=== PATIENT | male | born 1985 | race Caucasian/White ===

== ENCOUNTER 2024-09-21 10:54 | Emergency (ER) | payer MEDICARE, OTHER, SELFPAY ==
[2024-09-21 10:56] VITALS: BP 132/90
[2024-09-21 11:40] VITALS: BMI 22.5
--- NOTE | 2024-09-21 11:58 | ED.GENMED ---
History of Present Illness
General
Chief Complaint: Skin Problem
Source: patient
Exam Limitations: none
Time Seen by Provider: 09/21/24 11:44
Nursing documentation reviewed up to this point in time: agreed with
History of Present Illness
History of Present Illness:
38-year-old male presents emergency department due to a rash and shortness of breath that occurred last while patient was in [place] on vacation. He has had some shortness of breath and felt shaky when it started. He was seen by a
physician in [place] who prescribed a prednisone taper and montelukast and clobetasol. He did not take them yet.
Past History
Past History
ED Past Medical History: Arrthythmia and Other (migraines)
ED Past Surgical History: Cardiac (Cardiac ablation)
Social History
Tobacco: Non-smoker
Alcohol: Occasional
Drug: None
Personal:
Living: with family
Review of Systems
Review of Systems
Allergies reviewed?: Yes
All Other Systems: Not applicable
Constitutional: Reports no symptoms
EENT: Reports no symptoms
Respiratory: Reports trouble breathing
Cardiac: Reports no symptoms
ABD/GI: Reports no symptoms
: Reports no symptoms
Musculoskeletal: Reports no symptoms
Skin: Reports itching and rash
Neurological: Reports no symptoms
Endocrine: Reports no symptoms
Hematologic/Lymphatic: Reports no symptoms
Psychiatric: Reports no symptoms
Phy Exam
Physical Exam
Physical Exam:
Physical Exam
General: no apparent distress, not acutely ill
Neck: supple. no meningeal signs. normal posterior pharynx
Heart: s1/s2 regular rate and rhythm, no murmur. equal radial
pulses.
HEENT: Pupils equal round reactive to light, EOMI
Lungs: no acute respiratory distress. clear bilaterally
Abdomen: normal bowel sounds. not tender. no CVAT
Neuro: alert and oriented. no focal neurological deficits cranial nerves II through XII intact
Skin: Papular rash bilateral upper arms
Psychiatric: well kept. interactive and cooperative
Extremities: no edema. no calf tenderness. negative homans. good distal pulses
Course
Orders/Labs/Results
Orders:
Orders
09/21/24 11:55
CR Chest - 2 Views Urgent
Comment:
Reason For Exam: short of breath
Vital Signs
Initial and Last Documented VS:
Initial Vital Signs
Temp Pulse Resp BP Pulse Ox
98.7 F 81 15 132/90 99
09/21/24 10:56 09/21/24 10:56 09/21/24 10:56 09/21/24 10:56 09/21/24 10:56
Last Documented Vital Signs
Temp Pulse Resp BP Pulse Ox
98.7 F 81 15 132/90 99
09/21/24 10:56 09/21/24 10:56 09/21/24 10:56 09/21/24 10:56 09/21/24 12:00
MDM/Problems Addressed
Differential Diagnosis Includes:
Pneumonia, allergic reaction
MDM/Problems Addressed:
38-year-old male with dermatitis. Do not suspect pneumonia or PE or anaphylaxis. Patient will take prescribed prednisone and clobetasol. Return precautions given.
*Radiology
Radiology exam reviewed: preliminary read by ED provider (Chest x-ray no acute findings)
*Pulse Oximetry
SaO2: 99
Oxygen Mode of Delivery: Room air
Patient hypoxic: no
*Circular Sawyer Helper Interpretation
Rate: Circular Sawyer Helper- N/A
*Critical Care Note
Total Time (30-74mins, 75-104mins- exclusive of procedures): Not Applicable
Data Reviewed
Further Testing Considered But Not Given:
CT chest not indicated
Patient Management
Social determinants of health affecting care: Living situation and Strong social support
Escalation/DeEscalation of care consider admission/obs:
Admit not indicated
ED Attending Note
-
Portions of this chart may have been created with voice recognition software.� Occasional wrong word or��sound alike� substitutions may have occurred due to the inherent limitations of voice recognition software.
Discharge Plan
Departure
Patient Disposition: Home (Routine Discharge)
Date of Disposition: 09/21/24
Time of Disposition: 13:05
Patient with high blood pressure during this ER visit?: Yes
Condition: Good
Discharge Problem:
Dermatitis
Instructions: Skin Rash (DC), BLOOD PRESSURE
Prescriptions:
No Action
verapamil 40 MG tablet
40 mg PO BIDPRN PRN (Reason: as directed)
metoprolol succinate 25 MG tablet extended release 24 hr
25 mg PO DAILY
prednisone 20 mg tablet
40 mg PO DAILY Qty: 8 0RF
doxycycline hyclate 100 mg capsule
100 mg PO BID 7 Days Qty: 14 0RF
Referrals:
Pool Perry MD [Family Provider, Family Practice] - Call in 1-3 days for appt
Activity Restrictions/Additional Instructions:
Take prescribed clebetasol. Use prednisone if rash does not improve.
Interventions
Interventions:
*Risk Screen - Suicide Last Done: 09/21/24 10:56
*General Assessment Last Done: 09/21/24 10:56
*Neglect/Abuse Screening Last Done: 09/21/24 10:56
*ED- Fall Risk Assessment Last Done: 09/21/24 11:40
*ED COVID-19 Vaccine History Last Done: 09/21/24 10:56
ED-Skin Assessment Last Done: 09/21/24 11:40
Discharge Date and Time
Print Language: NEPALI
== END 2024-09-21 13:14 | disposition home or self-care (01) ==
LOC: EMR 10:54
PROVIDERS: EMERGENCY PHYSICIAN Emergency Medicine; FAMILY PHYSICIAN Family Medicine
DX: L30.9 Dermatitis, unspecified (principal); R06.02 Shortness of breath
CPT/HCPCS: 99283; 71046

== ENCOUNTER 2024-09-27 23:23 | Emergency (ER) | payer MEDICARE, OTHER, SELFPAY ==
[2024-09-27 23:30] VITALS: BP 142/82
[2024-09-28 02:00] VITALS: BP 127/70
--- NOTE | 2024-09-28 02:37 | ED.GENMED ---
History of Present Illness
General
Chief Complaint: Extremity Pain (non-traumatic)
Source: patient
Exam Limitations: none
Time Seen by Provider: 09/28/24 02:37
Nursing documentation reviewed up to this point in time: agreed with
History of Present Illness
History of Present Illness:
Note:
CHIEF COMPLAINT(S)
Burning and painful sensation in the right arm following a difficult intravenous placement.
HISTORY OF PRESENT ILLNESS
The patient is a 38-year-old male hx of SVT, PTSD who presented with complaints of burning and painful sensation in the right arm. He reported that these symptoms began after an intravenous (IV) line placement during a recent trip to [place] which
he feels was improperly done. This was done on september 20. He noted bruising at the site, which has progressively become more painful and now includes a 'fire burning sensation' that travels up the arm. There was no associated redness or significant
swelling noted; however, the patient described a specific tender spot on the arm. He denied any numbness, tingling, or recent trauma to the arm. The patient has a history of supraventricular tachycardia (SVT) and self-administered verapamil as
needed when experiencing episodes. He mentioned experiencing a minor SVT episode today, with symptoms of shakiness and weakness, prompting a call to emergency services by a family member. He denies current chest pain or dyspnea, although these
symptoms were present earlier but have since resolved.
MEDICATIONS
The patient takes verapamil on an as-needed basis for supraventricular tachycardia.
PHYSICAL EXAM
- Nursing notes reviewed and vital signs reviewed.
General: Patient is well appearing and in no acute distress; non-toxic
Skin: Warm and dry, small area of erythema noted to the posterior aspect of the left forearm
Head: Normocephalic, atraumatic
Eyes: Sclera non-icteric. EOMs intact.
Cardiac: Regular rate and rhythm, no murmurs
Peripheral Vascular: No lower extremity swelling or edema, no upper extremity swelling, 2+ radial, ulnar, and brachialis pulse on the left
Pulm: Normal respiratory effort
Musculoskeletal: No tenderness to palpation of the left upper extremity
Neuro: CN II-XII intact, no focal neurologic deficits.
Psychiatric: Appropriate mood and affect.
PLAN
1. Perform an ultrasound of the right arm to rule out deep venous thrombosis.
2. Administer non-steroidal anti-inflammatory drugs for pain management.
3. Consider administration of antibiotics based on ultrasound results and clinical judgment.
4. Repeat electrocardiogram to assess current cardiac status.
DIFFERENTIAL DIAGNOSIS
The Differential Diagnosis includes, in no particular order and is not limited to:
1. Superficial thrombophlebitis
2. Deep vein thrombosis
3. Cellulitis
4. Phlebitis secondary to IV placement
5. Local soft tissue injury
6. Hematoma
7. Complex regional pain syndrome
8. Infection secondary to compromised IV placement
9. Lymphedema
10. Allergic reaction to material used during IV placement
MDM/DISPOSITION
The patient is a 38-year-old male hx of SVT, PTSD who presented with complaints of burning and painful sensation in the right arm. He reported that these symptoms began after an intravenous (IV) line placement during a recent trip to [place] which
he feels was improperly done. He denies any swelling, numbness or tingling. On exam he has a small patch of erythema but no tenderness to palpation. US negative for DVT. Suspect superficial phlebitis, discussed conservative treatment, will initiate
doxycycline to cover for developing cellulitis. Patient stable for discharge.
Past History
Past History
ED Past Medical History: Arrthythmia and Other (migraines)
ED Past Surgical History: Cardiac (Cardiac ablation)
Social History
Tobacco: Non-smoker
Alcohol: Occasional
Drug: None
Personal:
Living: with family
Phy Exam
Physical Exam
Physical Exam:
see hpi
Course
Orders/Labs/Results
Orders:
Orders
09/28/24 02:52
Ibuprofen [Motrin] 600 mg PO NOW STA
US Periph Venous UPPER Ext LT Urgent
Comment:
Reason For Exam: left upper exremity pain, redness
09/28/24 02:53
Electrocardiogram (*1) Urgent
Reason for Study: Palpitations
Vital Signs
Initial and Last Documented VS:
Initial Vital Signs
Temp Pulse Resp BP Pulse Ox
97.8 F 86 20 142/82 98
09/27/24 23:30 09/27/24 23:30 09/27/24 23:30 09/27/24 23:30 09/27/24 23:30
Last Documented Vital Signs
Temp Pulse Resp BP Pulse Ox
97.9 F 62 20 124/80 98
09/28/24 05:15 09/28/24 05:15 09/28/24 05:15 09/28/24 05:15 09/28/24 05:43
*Pulse Oximetry
SaO2: 98
Patient hypoxic: no
*Critical Care Note
Total Time (30-74mins, 75-104mins- exclusive of procedures): Not Applicable
ED Attending Note
-
Portions of this chart may have been created with voice recognition software.� Occasional wrong word or��sound alike� substitutions may have occurred due to the inherent limitations of voice recognition software.
Discharge Plan
Departure
Patient Disposition: Home (Routine Discharge)
Date of Disposition: 09/28/24
Time of Disposition: 05:18
Patient with high blood pressure during this ER visit?: Yes
Condition: Good
Discharge Problem:
Redness of forearm
Instructions: Muscle and Bone Pain (DC), Superficial vein phlebitis and thrombosis
Prescriptions:
New
doxycycline hyclate 100 mg capsule
100 mg PO BID 5 Days Qty: 14 0RF
No Action
verapamil 40 MG tablet
40 mg PO BIDPRN PRN (Reason: as directed)
cyclobenzaprine 10 mg Tablet
10 mg PO Q6H PRN (Reason: back spasm)
prednisone 5 mg Tablet
5 mg PO DAILY
Rx Instructions:
tapering
lorazepam
1 mg PO DAILY PRN (Reason: anxiety)
Referrals:
Pool Perry MD [Family Provider, [facility]]
Activity Restrictions/Additional Instructions:
You can use a heating pad on the area and take NSAIDs as needed.
To cover for developing cellulitis, you can start taking doxycycline. You can take 1 tablet 2 times daily for 5 days.
Please follow-up with your primary care provider.
PLEASE RETURN EMERGENCY DEPARTMENT SHOULD YOU DEVELOP CHEST PAIN, SHORTNESS OF BREATH ACUTE WORSENING OR PAIN, INCREASING REDNESS, SWELLING, FEVERS OR CHILLS, OR ANY OTHER SIGNS OR SYMPTOMS WORRISOME TO YOU.
Interventions
Interventions:
*Risk Screen - Suicide Last Done: 09/27/24 23:30
*General Assessment Last Done: 09/28/24 01:36
*Neglect/Abuse Screening Last Done: 09/27/24 23:30
*ED- Fall Risk Assessment Last Done: 09/28/24 01:36
*ED COVID-19 Vaccine History Last Done: 09/28/24 01:36
*Nursing Disposition Last Done: 09/28/24 05:52
ED-Skin Assessment Last Done: 09/28/24 01:36
ED-Peripheral Vascular Assessment Last Done: 09/28/24 01:36
ED-Musculoskeletal Assessment Last Done: 09/28/24 01:36
Discharge Date and Time
Discharge Date/Time: 09/28/24 05:15
Print Language: [place]AST [place]
[2024-09-28 03:00] VITALS: BP 112/69
[2024-09-28] MEDS: MOTRIN 600 MG PO (03:16)
[2024-09-28 05:15] VITALS: BP 124/80
== END 2024-09-28 05:15 | disposition home or self-care (01) ==
LOC: EMR 23:23
PROVIDERS: EMERGENCY PHYSICIAN Student in an Organized Health Care Education/Training Program; FAMILY PHYSICIAN Family Medicine
DX: M79.601 Pain in right arm (principal); Z86.79 Personal history of other diseases of the circulatory system
CPT/HCPCS: 99284; 93005; 93971

== ENCOUNTER 2024-10-20 09:33 | Emergency (ER) | payer MEDICARE, OTHER, SELFPAY ==
[2024-10-20 09:35] VITALS: BP 131/87
--- NOTE | 2024-10-20 11:04 | ED.GENMED ---
History of Present Illness
General
Chief Complaint: Allergic Reaction
Source: patient
Exam Limitations: none
Time Seen by Provider: 10/20/24 10:57
Nursing documentation reviewed up to this point in time: agreed with
History of Present Illness
History of Present Illness:
Note:
CHIEF COMPLAINT(S)
Swelling of throat, difficulty swallowing, and diffuse urticaria.
HISTORY OF PRESENT ILLNESS
The patient is a 38-year-old male who presents with concerns of throat swelling and hives. Approximately two weeks ago, the patient was stung by bees, leading to five stings on his ankles, which subsequently developed into cellulitis. The patient
was prescribed doxycycline, which he completed yesterday. He reports that after completing the doxycycline, the redness began to return, particularly on his chest and back, and he started experiencing difficulty swallowing this morning. The patient
has a history of allergic reactions to bee stings, which previously resulted in throat swelling and difficulty breathing, necessitating treatment. This morning, he noted the spread of urticaria and the onset of throat swelling. He has used an
epinephrine auto-injector in the past after bee stings. The patient questions whether he may have developed a new allergy to doxycycline, despite having taken it previously without issues.
PHYSICAL EXAM
- General: No signs of respiratory distress.
- Ear, Nose, and Throat: Patient reports throat swelling; no oropharyngeal edema observed.
- Neck: No jugular venous distention.
- Lungs: Clear to auscultation bilaterally.
- Cardiovascular: Normal S1 and S2; no S3 or S4.
- Abdomen: Unremarkable.
- Extremities: No edema.
- Skin: Diffuse urticaria observed on the back and lower legs.
- Neurological: Cranial nerves 2-12 intact; no neurological deficits.
PLAN
Administer an intramuscular injection of 0.3 mg epinephrine and observe the response. Discuss whether a repeat course of antibiotics is necessary after evaluating response to treatment. Continue monitoring for any progression of symptoms.
DIFFERENTIAL DIAGNOSIS
The differential diagnosis includes, in no particular order and is not limited to:
1. Allergic reaction to bee stings
2. Acute urticaria
3. Anaphylaxis
4. Cellulitis
5. Drug reaction (possible allergy to doxycycline)
6. Angioedema
7. Sun sensitivity reaction
8. Reactive airway disease second to allergic response
9. Contact dermatitis
10. Environmental allergy reaction
CARE-UPDATE
10/20/24 - 13:06
Patient reports improvement following administration of epinephrine. No signs of infection or clear etiology for allergic reaction identified. Discharging patient with a short course of prednisone. Patient is equipped with an epinephrine pen for
emergencies. Ready for discharge.
Disposition:
SUMMARY OF ENCOUNTER
The 38-year-old male patient presented to the emergency department with throat swelling, difficulty swallowing, and diffuse urticaria. The patient reported a history of allergic reactions to bee stings and was recently on doxycycline for cellulitis,
which he completed yesterday. Symptoms of throat swelling and urticaria developed this morning. In the emergency department, the patient received intramuscular epinephrine, which resulted in symptom improvement. Due to the patients previous
reactions and potential for anaphylaxis, a cautious approach with observation and medication adjustment was necessary.
DISPOSITION
The patient was discharged with a short course of prednisone and equipped with an epinephrine pen for emergencies.
ASSESSMENT
The patient is most likely experiencing anaphylaxis due to a potential new allergy to doxycycline or a severe allergic reaction secondary to previous sensitization from bee stings.
EMERGENCY TREATMENTS ADMINISTERED
Administered intramuscular injection of 0.3 mg epinephrine.
PLAN
The plan includes monitoring symptom progression following the administration of epinephrine, observing for any reoccurrence or intensification of symptoms, and continuing with a short course of prednisone to further manage allergic response.
PATIENT EDUCATION AND COUNSELING
Discussed the importance of avoiding known allergens and situations that may trigger allergic reactions. Reviewed the use of an epinephrine auto-injector and when to seek immediate emergency help. Provided information on the potential signs and
symptoms of recurrent anaphylaxis.
FOLLOW-UP INSTRUCTIONS
The patient was advised to follow up with a primary care provider to reassess and manage the situation further, ensuring ongoing health monitoring and care as necessary.
MEDICATION RECONCILIATION
1. Prescribed a short course of prednisone.
2. Provided an epinephrine auto-injector for emergency use.
MEDICAL DECISION MAKING
-Complexity of Data Reviewed: Chronic conditions affecting care include a history of allergic reactions to bee stings and recent doxycycline use for cellulitis. Differential diagnosis includes allergic reaction to bee stings, acute urticaria,
anaphylaxis, cellulitis, a drug reaction to doxycycline, angioedema, contact dermatitis, and environmental allergy reaction.
-Data:
Category 1
No specific tests or documents were reviewed or ordered during this encounter.
-Risk:
Consideration of Admission/Observation: Escalation of care, including admission/observation, was considered given the complexity and risk of the patients presenting complaint, exam findings, and their underlying comorbidities. However, ultimately, I
feel the patient is safe for outpatient management with close follow-up. Reasoning: Work-up reassuring, does not reveal any acute life/organ-threatening processes, patients symptoms well controlled upon reevaluation, reexamination is reassuring,
vitals are stable, patient agreeable with discharge, and reliable for follow-up.
DIAGNOSIS
Anaphylaxis (ICD-10: T78.2XXA).
Past History
Past History
ED Past Medical History: Arrthythmia and Other (migraines)
ED Past Surgical History: Cardiac (Cardiac ablation)
Social History
Tobacco: Non-smoker
Alcohol: Occasional
Drug: None
Personal:
Living: with family
Phy Exam
Physical Exam
Physical Exam:
.
Course
Orders/Labs/Results
Orders:
Orders
10/20/24 11:00
EPINEPHrine PF [Adrenalin] 1 mg .ROUTE .STK-MED ONE
10/20/24 11:03
EPINEPHrine PF [Adrenalin] 0.3 mg IM NOW STA
10/20/24 12:00
Propofol [Diprivan] 20 ml .ROUTE .STK-MED
Vital Signs
Initial and Last Documented VS:
Initial Vital Signs
Temp Pulse Resp BP Pulse Ox
98 F 96 16 131/87 100
10/20/24 09:35 10/20/24 09:35 10/20/24 09:35 10/20/24 09:35 10/20/24 09:35
Last Documented Vital Signs
Temp Pulse Resp BP Pulse Ox
98 F 85 18 116/69 99
10/20/24 09:35 10/20/24 12:00 10/20/24 12:00 10/20/24 12:03 10/20/24 12:03
*Pulse Oximetry
SaO2: 100
Oxygen Mode of Delivery: Room air
Patient hypoxic: no
*Critical Care Note
Total Time (30-74mins, 75-104mins- exclusive of procedures): 32
comment:
Critical care statement: A total of 32 minutes of critical care time was provided for this patient. This includes management of unstable vital signs, evaluation of the patient at bedside, reviewing the patient's pertinent medical records, discussion
with consultants, review of old EKGs and review of pertinent medical records. This time with separate from time utilized to perform the aforementioned documented procedures
ED Attending Note
-
Portions of this chart may have been created with voice recognition software.� Occasional wrong word or��sound alike� substitutions may have occurred due to the inherent limitations of voice recognition software.
Discharge Plan
Departure
Patient Disposition: Home (Routine Discharge)
Date of Disposition: 10/20/24
Time of Disposition: 13:06
Patient with high blood pressure during this ER visit?: No
Condition: Good
Discharge Problem:
Anaphylaxis
Instructions: Anaphylaxis - Discharge instructions
Prescriptions:
New
prednisone 50 mg tablet
50 mg PO DAILY Qty: 5 0RF
No Action
verapamil 40 MG tablet
40 mg PO BIDPRN PRN (Reason: as directed)
cyclobenzaprine 10 mg Tablet
10 mg PO Q6H PRN (Reason: back spasm)
prednisone 5 mg Tablet
5 mg PO DAILY
Rx Instructions:
tapering
lorazepam
1 mg PO DAILY PRN (Reason: anxiety)
doxycycline hyclate 100 mg capsule
100 mg PO BID 5 Days Qty: 14 0RF
Referrals:
Pool Perry MD [Family Provider, Family Practice] - Call in 1-3 days for appt
Interventions
Interventions:
*Risk Screen - Suicide Last Done: 10/20/24 09:36
*General Assessment Last Done: 10/20/24 11:09
*Neglect/Abuse Screening Last Done: 10/20/24 09:36
*ED- Fall Risk Assessment Last Done: 10/20/24 10:54
*ED COVID-19 Vaccine History Last Done: 10/20/24 11:09
ED- Cardiac Assessment Last Done: 10/20/24 10:54
ED- Pulmonary Assessment Last Done: 10/20/24 10:54
ED-Skin Assessment Last Done: 10/20/24 10:53
Discharge Date and Time
Print Language: JORDAN[place]
[2024-10-20] MEDS: ADRENALIN 0.3 MG IM (11:07)
[2024-10-20 12:03] VITALS: BP 116/69
[2024-10-20 13:21] VITALS: BP 119/78
== END 2024-10-20 13:21 | disposition home or self-care (01) ==
LOC: EMR 09:33
PROVIDERS: EMERGENCY PHYSICIAN Emergency Medicine; FAMILY PHYSICIAN Family Medicine
DX: T78.2XXA Anaphylactic shock, unspecified, initial encounter (principal); X58.XXXA Exposure to other specified factors, initial encounter; R13.10 Dysphagia, unspecified; L50.9 Urticaria, unspecified
CPT/HCPCS: 96372; 99291

== ENCOUNTER 2025-02-04 07:28 | Emergency (ER) | payer MEDICARE, OTHER, SELFPAY ==
[2025-02-04 07:30] VITALS: BP 128/74; BMI 22.1
--- NOTE | 2025-02-04 07:55 | ED.GENMED ---
History of Present Illness
General
Chief Complaint: Numbness
Source: patient
Exam Limitations: none
Time Seen by Provider: 02/04/25 07:41
Nursing documentation reviewed up to this point in time: agreed with
History of Present Illness
History of Present Illness:
39-year-old male with past medical history of SVT who presents to the emergency department for evaluation of headache/right facial paresthesias and issues with balance in the setting of recent URI symptoms. Patient reports that yesterday he started
feeling sick 'like I was coming down with a cold.' He describes feeling congested, achy with subjective fever/chills throughout the day. He says he took some Mucinex and was able to get through the day. In the evening he says that he started to
have some mild pruritus and some hives and took some Claritin which helped with this. He says that he started to feels some swelling on the right side of his face. Says he woke up this morning and the swelling was improved but he still feels
paresthesias in the right side of his face. He says he has significant right sided headache. He says that this morning he feels like his balance is off 'like I am drifting towards the left.' Came to the ER for evaluation. He denies any ear pain.
He denies any cough, chest pain, shortness of breath. He denies any other neurologic symptoms�denies any numbness in the extremities or weakness in the extremities, denies any change in his vision or speech. He denies having had similar symptoms
in the past.
Past History
Past History
ED Past Medical History: Arrthythmia and Other (migraines)
ED Past Surgical History: Cardiac (Cardiac ablation)
Social History
Tobacco: Non-smoker
Alcohol: Occasional
Drug: None
Personal:
Living: with family
Review of Systems
Review of Systems
All Other Systems: ROS reviewed and negative except as documented in HPI and ROS
Constitutional: Reports fever, fatigue and chills
EENT: Reports other (Congestion); Denies sore throat
Respiratory: Denies trouble breathing
Cardiac: Denies chest pain
ABD/GI: Denies abdominal pain, nausea or vomiting
: Denies flank pain
Musculoskeletal: Reports neck pain; Denies back pain
Neurological: Reports dizzy and headache; Denies weakness or numbness
Phy Exam
Physical Exam
Physical Exam:
General: Awake, alert, oriented x3; no acute distress
Head: Normocephalic, atraumatic
Eyes: Conjunctiva normal, EOMI, pupils equal round reactive to light bilaterally
Ears: External ear appears normal bilaterally, ear canals clear bilaterally; TMs are normal bilaterally with good light reflex, no erythema or bulging
Throat: Airway intact, handling secretions, slight erythema in the posterior oropharynx but no tonsillar edema or exudate
Neck: Trachea midline, supple without meningismus
Lungs: Clear to auscultation bilaterally, no wheezing, rales, rhonchi
Heart: Regular rate and rhythm, no murmurs, gallops, or rubs
Neuro: Cranial nerve intact, speech fluid without dysarthria or aphasia, no limb ataxia, motor and sensory is intact and symmetric in the upper and lower extremities
Skin: no rash noted
Extremities: No edema in extremities, equal pulses in all extremities
Scores
NIH Stroke Score
Level of Consciousness: 0 - Alert
LOC Questions: 0-Answers both correctly
LOC Commands: 0-Performs both correctly
Best Horizontal Gaze: 0-Normal
Visual Zambrano: 0=Normal, no visual loss
Facial Palsy: 0=Normal, symmetrical
Motor - Right Arm: 0=No drift 10 seconds
Motor - Left Arm: 0=No drift 10 seconds
Motor - Right Le-No drift 5 seconds
Motor - Left Le-No drift 5 seconds
Limb Ataxia: 0-Absent
Sensation: 0-Normal
Best Language: 0-No aphasia
Dysarthria: 0-Normal
Extinction and Inattention: 0-No abnormality
NIH Total Score:: 0
Heart Failure Risk
Heart Failure Risk Score: Not Applicable
Heart Score for Chest Pain Patients
STEMI patient?: Not applicable
Withdrawal Assessment of Alcohol
Withdrawal Assessment Completed?: Not applicable
Course
Orders/Labs/Results
Orders:
Orders
02/04/25 07:35
EKG [Electrocardiogram (*1)] Urgent
Reason for Study: Vertigo / Dizzy
EKG- Treatment ONCE
02/04/25 07:55
CT Head & Neck Angio W/wo IV Urgent
Comment:
Reason For Exam: right sided headache, neck pain; left sided weak
02/04/25 08:01
COVID-19 Antigen Urgent
Source: Nasal Swab
CPK [Creatine Phosphokinase] Urgent
Complete Blood Count/With Diff Urgent
Comprehensive Metabolic Panel Urgent
Influenza A+B Rapid Molecular Urgent
MORA Source: Nasal Swab
Specimen Description:
02/04/25 08:05
0.9% Sodium Chloride 1000 ml [Nss] 1,000 ml IV BOLUS
02/04/25 09:32
NEUROLOGY CONSULT Urgent
Consulting Provider: Vernon Beckett
Was physician already notified: Yes
02/04/25 11:06
MethylPREDNISolone PF [Solu-Medrol Pf] 125 mg IV NOW STA
Abnormal Lab Results
02/04/25
08:01
Absolute Monos (auto) 0.7 H 10^3/uL
(0.1-0.6)
Monocytes % 11.2 H %
(1.7-9.3)
Sodium 133 L mmol/L
(135-145)
Calcium 12.1 H mg/dl
(8.4-10.2)
Creatine Kinase 196 H U/L
(55-170)
02/04/25 08:01
02/04/25 08:01
Vital Signs
Initial and Last Documented VS:
Initial Vital Signs
Temp Pulse Resp BP Pulse Ox
36.6 C 85 16 128/74 97
02/04/25 07:30 02/04/25 07:30 02/04/25 07:30 02/04/25 07:30 02/04/25 07:30
Last Documented Vital Signs
Temp Pulse Resp BP Pulse Ox
36.6 C 73 20 114/68 95
02/04/25 07:30 02/04/25 10:00 02/04/25 10:00 02/04/25 10:00 02/04/25 10:00
MDM/Problems Addressed
Differential Diagnosis Includes:
Congestion, fever/chills: Viral URI, sinus infection
Facial symptoms, balance issues: Viral labyrinthitis, eustachian tube dysfunction in the setting of sinus symptoms; brain mass, brain bleed, stroke considered less likely
MDM/Problems Addressed:
39-year-old male presents for evaluation of right sided facial paresthesias and balance issues�feels like he is drifting towards the left. Symptoms started this morning after yesterday starting with URI symptoms including congestion, fever and
achiness. He also had transient pruritus and right sided facial swelling last night (history of multiple allergies but no clear allergic exposure last night, symptoms seemed to improve with Claritin). Vitals and exam are as above. No objective
weakness on neurologic exam, no ataxia noted. Overall suspect likely URI with disequilibrium related to inner ear pathology either labyrinthitis or eustachian tube dysfunction. He is however complaining of severe headache on the right with some
mild neck pain and giving this in the context of reported neurologic symptoms will check imaging of the head. Check labs and EKG. Swab for COVID and influenza. Will reassess after the above.
Labs reviewed: CBC and CMP no clinically significant abnormalities. CTA head and neck negative for any acute abnormalities. His EKG shows sinus rhythm. Vital signs have been stable here in the ER. He is still symptomatic we will discuss case
with neurology for consult; overall I wonder if this may be viral syndrome with some eustachian tube dysfunction or a labyrinthitis causing balance issues although unclear how this would account for right sided facial paresthesias. Case was
discussed with neurology for consult given persistence of symptoms.
Clinical reassessment while pending neurology consult patient says he actually is feeling much better. He says that he still feels slightly off balance but his right-sided headache has improved. Still has some congestion. He feels that there is
some swelling/fullness to the right side of his lip. He questions whether his symptoms could be from an allergic reaction that she has a history of anaphylaxis and he did have some hives last night and felt his face was swollen before taking
Claritin. He says he recently started taking some new essential amino acids and wonders if he could be allergic to bees. However will be unreasonable to trial course of steroids; even if these are allergic/sinus symptoms that might help. With
improving symptoms and objectively normal neurologic exam I think he can likely be discharged for outpatient management pending neurology assessment.
Discussed with neurology they agree normal neurologic exam. His symptoms are improving. Suspect likely URI related symptoms. Plan to discharge on steroids. Patient comfortable this plan. Spoke about return precautions and follow-up plan and all
questions answered.
*Radiology
Radiology exam reviewed: radiology read reviewed
*Pulse Oximetry
SaO2: 97
Oxygen Mode of Delivery: Room air
Patient hypoxic: no (97%)
*EKG
Interpreted by ED Provider?: Yes
Heart Rate: 82
Rate: normal
Rhythm: sinus
Interval: normal interval
QRS Pattern: normal QRS
Ischemia: no ischemia
*Critical Care Note
Total Time (30-74mins, 75-104mins- exclusive of procedures): Not Applicable
Data Reviewed
Source: patient and ambulance crew
Patient Management
Discussion with other providers: Bilingual Patient Support Caseworker (Discussed with neurology)
ED Attending Note
-
Portions of this chart may have been created with voice recognition software.� Occasional wrong word or��sound alike� substitutions may have occurred due to the inherent limitations of voice recognition software.
Discharge Plan
Departure
Patient Disposition: Home (Routine Discharge)
Date of Disposition: 02/04/25
Time of Disposition: 11:58
Patient with high blood pressure during this ER visit?: No
Discharge Problem:
Disequilibrium, Facial paresthesia, Congestion of nasal sinus
Instructions: Eustachian tube problems, Paresthesia (DC)
Prescriptions:
New
prednisone 10 mg Tablet
See Rx Instructions .ROUTE .COMPLEX Qty: 45 0RF
Rx Instructions:
Take By Mouth:
50 mg daily x3 days, 40 mg daily x3 days,
30 mg daily x3 days, 20 mg daily x3 days,
10 mg daily x3 days
No Action
verapamil 40 MG tablet
40 mg PO BIDPRN PRN (Reason: as directed)
cyclobenzaprine 10 mg Tablet
10 mg PO Q6H PRN (Reason: back spasm)
prednisone 5 mg Tablet
5 mg PO DAILY
Rx Instructions:
tapering
lorazepam
1 mg PO DAILY PRN (Reason: anxiety)
doxycycline hyclate 100 mg capsule
100 mg PO BID 5 Days Qty: 14 0RF
prednisone 50 mg tablet
50 mg PO DAILY Qty: 5 0RF
Referrals:
Pool Perry MD [Family Provider, Family Practice] - Follow up in 5-7 days
Activity Restrictions/Additional Instructions:
Thank you for visiting the Emergency Department at [facility].
1. Please schedule a follow up appointment as directed. Call first thing tomorrow morning to make an appointment.
2. If indicated, please take your medications as instructed and indicated on discharge paperwork.
3. If any of your symptoms do not improve, or persist, or become more severe within 6-12 hours, please return to the emergency department for further care.
4. Please return to the emergency department if you develop a headache, neck pain/stiffness, fever greater than 100.4F, chest pain, shortness of breath, persistent nausea, vomiting, slurred speech, difficulty walking, numbness/tingling, weakness,
signs of infection or any other symptoms that are worrisome to you.
Please call [phone] if you have any questions.
Interventions
Interventions:
*Risk Screen - Suicide Last Done: 02/04/25 07:30
*General Assessment Last Done: 02/04/25 07:30
*Neglect/Abuse Screening Last Done: 02/04/25 07:30
*ED- Fall Risk Assessment Last Done: 02/04/25 09:00
*ED COVID-19 Vaccine History Last Done: 02/04/25 07:30
*ED Influenza Vaccine History Last Done: 02/04/25 07:30
ED- Neurological Assessment Last Done: 02/04/25 09:00
Discharge Date and Time
Print Language: CZECH
[2025-02-04 08:00] VITALS: BP 114/83
[2025-02-04] MEDS: NSS 1000 IV (08:09)
[2025-02-04 08:29] LABS: Hematocrit 44.8 % (39.0-52.0); Hemoglobin 14.8 g/dL (13.0-18.0); Mean Corp Hgb Conc. 33.0 g/dL (33.0-37.0); Mean Corpuscular Volume 92.6 fL (80.0-94.0); Nucleated Red Blood Cells % 0 % (-); Platelet Count 229 10^3/uL (130-400); Red Cell Dist. Width 11.6 % (11.5-14.5)
[2025-02-04 08:31] LABS: ALT (SGPT) 31 U/L (0-50); AST (SGOT) 29 U/L (17-59); Albumin 4.5 g/dl (3.5-5.0); Alkaline Phosphatase 57 U/L (38-126); Blood Urea Nitrogen 16 mg/dl (9-20); COVID-19 Antigen Negative (Negative); Calcium 12.1 mg/dl (8.4-10.2); Carbon Dioxide 25 mmol/L (22-30); Chloride 104 mmol/L (98-107); Estimated Creatinine Clearance > 125 ml/min; Glucose 98 mg/dl (70-99); Potassium 4.3 mmol/L (3.5-5.1); Sodium 133 mmol/L (135-145); Total Protein 7.6 g/dl (6.3-8.2); eGFR > 60.00
[2025-02-04 09:21] VITALS: BP 116/80
[2025-02-04 10:00] VITALS: BP 114/68
[2025-02-04 11:00] VITALS: BP 112/82
--- NOTE | 2025-02-04 11:17 | CON.NEURO4 ---
Consultation - Neurology 4
-
CONSULTING PHYSICIAN: Dr. Vernon Beckett
REFERRING PHYSICIAN: Dr. David Mcdonald
DICTATED BY: Dr. Vernon Beckett
DATE/TIME OF REQUEST: 02/04/2025
DATE/TIME OF CONSULTATION: 02/04/2025
Reason for Consultation: Headache, paresthesias
ASSESSMENT AND PLAN:
The patient is a 39 years old male with a past medical history of SVT who presents to the emergency room for evaluation of headache and right-sided facial paresthesias and some issues with balance, in the setting of recent upper respiratory tract
infection. The patient says that he is feeling well at this time, and he was able to walk to the bathroom without help. He does not complain of a headache at this time. The patient thinks that he is fine and he wants to go home.
The patient does not appear to have any acute neurologic process going on at this time. The patient was told to return to the ER if needed.
I had a detailed discussion with the patient regarding the assessment and management plan and he verbalized understanding of our discussion.
. The CT of the head did not show any acute intracranial finding.
. CTA of the head and neck was unremarkable
History of Present Illness:
The patient is a 39 years old male with a past medical history of SVT who presents to the emergency room for evaluation of headache and right-sided facial paresthesias and some issues with balance in the setting of recent upper respiratory tract
infection. Patient reports that yesterday he started feeling sick 'like I was coming down with a cold.' In the evening he says that he started to have some mild pruritus and started to feels some swelling on the right side of his face. Says he
woke up this morning and the swelling was improved but he still feels paresthesias in the right side of his face. He says that this morning he feels like his balance is off 'like I am drifting towards the left.' The patient says that he is feeling
better now and he walked to the bathroom without much difficulty. He does not complain of any significant headache at this time. Patient says that he wants to go home.
Past Medical History: SVT
Review of Systems:
The patient denies any headache at this time, dizziness, chest pain, shortness of breath, fever, chills, nausea and vomiting.
Neurologic Examination:
Alert and oriented x 3,
Speech is clear,
Cranial nerves II to XII are grossly intact,
The motor strength is grossly 5/5 bilaterally,
Sensation is grossly intact,
The cerebellar examination does not show any limb ataxia.
Vital Signs and Labs
-
Vital Signs and Labs:
Vital Signs
Temp Pulse Resp BP Pulse Ox
36.6 C 72 18 112/82 95
02/04/25 07:30 02/04/25 11:30 02/04/25 11:30 02/04/25 11:00 02/04/25 11:30
Lab Results
02/04/25 08:01
02/04/25 08:01
Sodium 133 mmol/L (135-145) L 02/04/25 08:01
Potassium 4.3 mmol/L (3.5-5.1) 02/04/25 08:01
BUN 16 mg/dl (9-20) 02/04/25 08:01
Glucose 98 mg/dl (70-99) 02/04/25 08:01
Calcium 12.1 mg/dl (8.4-10.2) H 02/04/25 08:01
Medications
-
Home Medications
�Medication �Instructions �Recorded
verapamil 40 mg tablet 40 mg PO BIDPRN PRN as directed 07/21/18
cyclobenzaprine 10 mg tablet 10 mg PO Q6H PRN back spasm 09/28/24
doxycycline hyclate 100 mg capsule 100 mg PO BID 5 days #14 caps 09/28/24
lorazepam 1 mg PO DAILY PRN anxiety 09/28/24
prednisone 5 mg tablet 5 mg PO DAILY 09/28/24
prednisone 50 mg tablet 50 mg PO DAILY #5 tabs 10/20/24
prednisone 10 mg tablet See Rx Instructions .Route 02/04/25
.COMPLEX #45 tabs
[2025-02-04] MEDS: SOLU-MEDROL PF 125 MG IV (11:54)
== END 2025-02-04 12:04 | disposition home or self-care (01) ==
LOC: EMR 07:28
PROVIDERS: CONSULT PHYSICIAN Psychiatry & Neurology Neurology; EMERGENCY PHYSICIAN Emergency Medicine; FAMILY PHYSICIAN Family Medicine
DX: E87.8 Other disorders of electrolyte and fluid balance, not elsewhere classified (principal); R09.81 Nasal congestion; R20.2 Paresthesia of skin; Z11.52 Encounter for screening for COVID-19
CPT/HCPCS: 96374; 96361; 99284; 70496; 70498; 80053; 82550; 85025; 87502; 87811; 93005; Q9967

== ENCOUNTER 2025-02-05 22:57 | Emergency (ER) | payer MEDICARE, OTHER, SELFPAY ==
[2025-02-05 22:59] VITALS: BP 153/93
--- NOTE | 2025-02-05 23:10 | ED.GENMED ---
History of Present Illness
General
Chief Complaint: Headache
Source: patient
Exam Limitations: none
Time Seen by Provider: 02/05/25 23:08
Nursing documentation reviewed up to this point in time: agreed with
History of Present Illness
History of Present Illness:
Note:
CHIEF COMPLAINT(S)
- Headache and pressure on the right side of face and head
- Sore throat, dizziness, and fullness sensation on the face
HISTORY OF PRESENT ILLNESS
The patient is a 39-year-old male with a pmh of SVT, PTSD, presents today with a two-day history of severe pressure and headache localized to the right side of his head and face. He describes the headache as intense, fluctuating in waves, and
accompanied by severe pressure behind his right eye. The patient reports the onset of symptoms started with a severe fever and chills, progressing to sweating and worsening discomfort.
He also notes a burning sensation on his face and neck, likened to feeling 'like its on fire,' and experiences dizziness, specifically feeling like he is leaning to the left. The patient denies any prior history of similar headaches or migraines but
acknowledges a recent cut inside his mouth after using it to open a water bottle several days ago, potentially leading to an infection.
The patient was seen in the Emergency Room the day before this visit and was subsequently prescribed prednisone under the suspicion of an allergic reaction/eustachian tube vestibular dysfunction, which he has started taking. However, he reports
worsening symptoms, including redness in his throat and pressure that increases in severity. He mentions that he self-administered Tylenol earlier, which provided minimal relief. He denies visual changes, such as blurred vision, but notes a specific
pressure point near his eye.
The patient is also concerned about a possible infection in his mouth due to a past experience where an infection was initially underdiagnosed and later worsened. He expresses discomfort despite ongoing fever with a maximum temperature recorded at
99.8�F and ongoing sore throat which appears worse today compared to yesterday.
He reports that he has noticed redness in the upper right gingiva. He reports that he had a cut there from when he opened a plastic bottle with his mouth a few days ago.
He denies pain with eating.
He does follow with a dentist and primary care provider.
PAST MEDICAL AND SURGICAL HISTORY
- No significant past medical history noted during the conversation.
- Recent self-reported history of a cut inside the mouth.
ALLERGIES
- Allergic to penicillin, sulfa drugs, clindamycin with history of throat swelling and severe reactions.
MEDICATIONS
- Currently prescribed prednisone for possible allergic reaction.
- Took Tylenol for headache relief prior to the visit.
PHYSICAL EXAM
General: Alert, no acute distress.
Skin: Warm, dry, no rashes
Head: Normocephalic, atraumatic. No facial swelling.
Neck: Supple, trachea midline.
Eyes, Ears, Nose, Mouth and Throat: Oral mucosa moist, mild pharyngeal erythema, uvula midline. There is perhaps some mild right upper gingival erythema however I am not able appreciate any swelling, there is no tenderness to palpation, there is no
tenderness palpation of the upper dentition. Dentition is intact.
No intra-oral abrasion or laceration
Cardiovascular: Normal peripheral perfusion, No edema.
Respiratory: Respirations are non-labored.
Gastrointestinal: Abdomen nondistended.
Back: Normal range of motion, Normal alignment.
Musculoskeletal: Normal range of motion, normal strength.
Neurological: Alert and oriented to person, place, time, and situation, No focal neurological deficit observed.Cranial nerves II through XII intact. Speech fluid and normal. Normal gait. 5 out of 5 strength bilateral upper and lower extremities.
Sensation intact.
Psychiatric: Cooperative, appropriate mood & affect.
PLAN
- Laboratory tests: Check for strep throat and perform blood tests to rule out any systemic infection.
- Imaging: Consider chest X-ray to check for potential pneumonia, given persistent cough and possible fevers at home.
- Treatment: Continue prednisone (steroid) to help with possible inner ear problem and swelling. Consider starting antibiotics empirically owing to proceed with the test results.
- Monitoring and education: Patient advised to follow-up with a family physician, Dr. Knox, if symptoms do not improve or worsen. Patient educated about warning signs indicating worsening of infection or other potential complications.
DIFFERENTIAL DIAGNOSIS
The Differential Diagnosis includes, in no particular order and is not limited to:
1. Sinusitis
2. Migraine headache
3. Temporal arteritis
4. Dental infection or abscess
5. Otitis media with effusion
6. Allergic reaction with associated secondary infection
7. Upper respiratory tract infection or viral pharyngitis
8. Herpes zoster involving trigeminal nerve
9. Mastoiditis
10. Meningitis
UPDATE
I suspect headache related to URI symptoms versus vestibular dysfunction. Did offer migraine cocktail which patient is declining. Patient is requesting repeat CT scan of the head but I discussed that this would not be useful. He had an extensive
work up yesterday including negative CTA of the head and neck. He was seen by neurology who suspects the patient is not having any acute neurologic process at this time. Patient is most and chief concern today is primary concern about developing
infection in his mouth. On my exam, there is maybe some mild erythema in the right upper gingival, no clear abscess, no dental fracture, no tenderness to palpation of the dentition. Could be possible developing dental infection. Case discussed with
ED attending, will start doxycycline for possible developing infection and discussed close follow up with dentist and PCP.
CHART REVIEW
Reviewed medical consultation from neurology in 02/04/2025, reviewed ER/notation from 02/04/2025
MDM/DISPOSITION
The patient is a 39-year-old male with a pmh of SVT, PTSD, presents today with a two-day history of severe pressure and headache localized to the right side of his head and face. He reports that the symptoms have been ongoing. He was evaluated in
our ER yesterday and had a negative CTA of the head and neck and was also evaluated by neurology. They suspect his symptoms are related to sinus congestion with possible eustachian tube dysfunction. was very concerned about possible infection in
his mouth. My exam, I am not able to appreciate any signs of developing infection. I did swab him for strep which is negative. His chest x-ray shows no signs of developing pneumonia. He has a normal white count. No fever. Will trial course of
doxycycline. Discussed continuing steroid. Patient stable for discharge.
Past History
Past History
ED Past Medical History: Arrthythmia and Other (migraines)
ED Past Surgical History: Cardiac (Cardiac ablation)
Social History
Tobacco: Non-smoker
Alcohol: Occasional
Drug: None
Personal:
Living: with family
Review of Systems
Review of Systems
All Other Systems: ROS reviewed and negative except as documented in HPI and ROS
Phy Exam
Physical Exam
Physical Exam:
see hpi
Course
Orders/Labs/Results
Orders:
Orders
02/05/25 23:36
Complete Blood Count/With Diff Urgent
Comprehensive Metabolic Panel Urgent
Rapid Strep Group A Urgent
[facility] Source: Throat/Pharynx
Specimen Description:
Date Specimen was Collected: 02/05/25
Time Specimen was Collected: 23:42
Throat Culture [Throat Culture, Comprehensive] Urgent
[facility] Source: Throat/Pharynx
Specimen Description:
Date Specimen was Collected: 02/05/25
Time Specimen was Collected: 23:42
02/05/25 23:37
CR Chest - 2 Views Urgent
Comment:
Reason For Exam: cough, fever at home
02/06/25 00:47
Ibuprofen [Motrin] 600 mg PO NOW STA
Abnormal Lab Results
02/06/25
00:05
RBC 4.12 L 10^6/uL
(4.70-6.10)
Hgb 12.8 L g/dL
(13.0-18.0)
Hct 37.1 L %
(39.0-52.0)
MCH 31.1 H pg
(27.0-31.0)
RDW 11.4 L %
(11.5-14.5)
Absolute Neuts (auto) 6.6 H 10^3/uL
(1.4-6.5)
Absolute Monos (auto) 0.7 H 10^3/uL
(0.1-0.6)
Lymphocytes % 20.3 L %
(20.5-51.1)
Sodium 132 L mmol/L
(135-145)
BUN 22 H mg/dl
(9-20)
Glucose 100 H mg/dl
(70-99)
02/06/25 00:05
02/06/25 00:05
Vital Signs
Initial and Last Documented VS:
Initial Vital Signs
Temp Pulse Resp BP Pulse Ox
98.2 F 78 18 153/93 99
02/05/25 22:59 02/05/25 22:59 02/05/25 22:59 02/05/25 22:59 02/05/25 22:59
Last Documented Vital Signs
Temp Pulse Resp BP Pulse Ox
98.1 F 75 14 119/78 95
02/06/25 01:54 02/06/25 01:54 02/06/25 01:54 02/06/25 01:54 02/06/25 01:54
*Pulse Oximetry
SaO2: 99
Oxygen Mode of Delivery: Room air
Patient hypoxic: no
*Critical Care Note
Total Time (30-74mins, 75-104mins- exclusive of procedures): Not Applicable
ED Attending Note
-
Portions of this chart may have been created with voice recognition software.� Occasional wrong word or��sound alike� substitutions may have occurred due to the inherent limitations of voice recognition software.
Discharge Plan
Departure
Patient Disposition: Home (Routine Discharge)
Date of Disposition: 02/06/25
Time of Disposition: 01:16
Patient with high blood pressure during this ER visit?: Yes
Condition: Good
Discharge Problem:
Facial discomfort, Generalized headaches
Instructions: Headache, Adult (DC), Gingivitis (DC), BLOOD PRESSURE
Prescriptions:
New
doxycycline hyclate 100 mg capsule
100 mg PO BID 5 Days Qty: 10 0RF
No Action
verapamil 40 MG tablet
40 mg PO BIDPRN PRN (Reason: as directed)
cyclobenzaprine 10 mg Tablet
10 mg PO Q6H PRN (Reason: back spasm)
prednisone 5 mg Tablet
5 mg PO DAILY
Rx Instructions:
tapering
lorazepam
1 mg PO DAILY PRN (Reason: anxiety)
doxycycline hyclate 100 mg capsule
100 mg PO BID 5 Days Qty: 14 0RF
prednisone 50 mg tablet
50 mg PO DAILY Qty: 5 0RF
prednisone 10 mg Tablet
See Rx Instructions .ROUTE .COMPLEX Qty: 45 0RF
Rx Instructions:
Take By Mouth:
50 mg daily x3 days, 40 mg daily x3 days,
30 mg daily x3 days, 20 mg daily x3 days,
10 mg daily x3 days
Referrals:
Pool Perry MD [Family Provider, Family Practice]
Activity Restrictions/Additional Instructions:
Please continue taking steroids as prescribed.
Please continue taking the steroid. You can trial the antibiotic for potential developing gingival/oral infection.
Please stay well hydrated. Please call your dentist to schedule an appointment for follow up.
PLEASE RETURN TO THE ER SHOULD YOU DEVELOP CHEST PAIN, SHORTNESS OF BREATH, INTRACTABLE NAUSEA OR VOMITING, NECK SWELLING, INABILITY TO SWALLOW, HOARSENESS TO THE VOICE, INABILITY TO OPEN THE JAW, OR ANY OTHER SIGNS OR SYMPTOMS WORRISOME TO YOU.
Interventions
Interventions:
*Risk Screen - Suicide Last Done: 02/05/25 22:59
*General Assessment Last Done: 02/06/25 00:16
*Neglect/Abuse Screening Last Done: 02/05/25 22:59
*ED- Fall Risk Assessment Last Done: 02/06/25 00:16
*ED COVID-19 Vaccine History Last Done: 02/06/25 00:16
*ED Influenza Vaccine History Last Done: 02/06/25 00:16
*Nursing Disposition Last Done: 02/06/25 01:54
ED- Neurological Assessment Last Done: 02/06/25 00:16
Discharge Date and Time
Discharge Date/Time: 02/06/25 01:55
Print Language: SURINAMESE
[2025-02-06 00:22] LABS: Hematocrit 37.1 % (39.0-52.0); Hemoglobin 12.8 g/dL (13.0-18.0); Mean Corp Hgb Conc. 34.5 g/dL (33.0-37.0); Mean Corpuscular Volume 90.0 fL (80.0-94.0); Nucleated Red Blood Cells % 0 % (-); Platelet Count 231 10^3/uL (130-400); Red Cell Dist. Width 11.4 % (11.5-14.5)
[2025-02-06 00:40] LABS: ALT (SGPT) 31 U/L (0-50); AST (SGOT) 29 U/L (17-59); Albumin 4.3 g/dl (3.5-5.0); Alkaline Phosphatase 48 U/L (38-126); Blood Urea Nitrogen 22 mg/dl (9-20); Calcium 9.2 mg/dl (8.4-10.2); Carbon Dioxide 24 mmol/L (22-30); Chloride 104 mmol/L (98-107); Glucose 100 mg/dl (70-99); Potassium 4.2 mmol/L (3.5-5.1); Sodium 132 mmol/L (135-145); Total Protein 7.3 g/dl (6.3-8.2); eGFR > 60.00
[2025-02-06] MEDS: MOTRIN 600 MG PO (00:54)
[2025-02-06 01:54] VITALS: BP 119/78
== END 2025-02-06 01:55 | disposition home or self-care (01) ==
LOC: EMR 22:57
PROVIDERS: Physician Assistant; EMERGENCY PHYSICIAN Emergency Medicine; FAMILY PHYSICIAN Family Medicine
DX: R51.9 Headache, unspecified (principal); R20.8 Other disturbances of skin sensation; Z88.0 Allergy status to penicillin; Z88.2 Allergy status to sulfonamides
CPT/HCPCS: 99284; 71046; 80053; 85025; 87070; 87880